=== PATIENT | male | born 1955 | race Caucasian/White ===

== ENCOUNTER 2023-08-09 09:02 | Emergency (ER) | payer BC, OTHER ==
[2023-08-09 09:40] VITALS: RESP 18; TEMP 97.8; BMI 38.0
[2023-08-09 10:43] LABS: INR 1.07 (0.83-1.09); PROTHROMBIN TIME (PATIENT) 12.4 SEC (9.7-13.0)
[2023-08-09 10:44] LABS: BASO % 0.7 % (0-2.0); EOS % 2.7 % (0-4.5); HEMATOCRIT 42.5 % (35.4-49); HEMOGLOBIN 13.8 GM/dL (11.7-16.9); LYMPH % 10.5 % (8-40); MCH 29.3 pg (25.7-33.7); MCHC 32.5 g/dl (32.0-35.9); MEAN CELL VOLUME 90.2 fl (80-96); MEAN PLT VOLUME 10.1 fl (7.5-11.1); NEUT % 78.1 % (42.8-82.8); PLATELET COUNT 190 10^3/uL (134-434); RBC 4.71 M/mm3 (4.00-5.60); WHITE BLOOD COUNT 8.5 K/mm3 (4.0-10.0)
[2023-08-09 10:53] LABS: POTASSIUM 4.4 mmol/L (3.5-5.1)
[2023-08-09 10:55] LABS: ALBUMIN 3.7 g/dl (3.4-5.0); BLOOD UREA NITROGEN 20.1 mg/dL (7-18)
[2023-08-09 10:59] LABS: CREATININE 0.9 mg/dL (0.55-1.3)
[2023-08-09 11:00] LABS: BILIRUBIN,TOTAL 0.5 mg/dL (0.2-1)
[2023-08-09 12:09] VITALS: BP 132/88; PULSE 68
== END 2023-08-09 12:08 | disposition home or self-care (01) ==
LOC: JER 09:02
DX: R04.0 Epistaxis (principal)
CPT/HCPCS: 36415; 80053; 85025; 85610; 99283-25